=== PATIENT | male | born 1975 | race Caucasian/White ===

== ENCOUNTER 2016-04-16 11:44 | Emergency (ER) | payer SELFPAY ==
[~2016-04-16] VITALS: Ht 172.7 cm; Wt 64.0 kg
[2016-04-16 11:46] VITALS: BP 149/82; PULSE 92; RESP 24; TEMP 97.2; O2SAT 97
--- NOTE | 2016-04-16 12:00 | PD ---
HPI Chief Complaint: Back/ Neck Pain or Injury Time Seen by Provider: 12:00 Travel History International Travel<30 days: No Contact w/Intl Traveler<30days: No Traveled to known affect area: No History of Present Illness HPI 30-year-old male presents to the emergency Department with complaint of left lateral neck pain that radiates to his left upper shoulder that he woke up with this morning. He has been moving over the past few days and moving heavy furniture. Denies traumatic injury. He woke up this morning and was barely able to move his neck. Pain is aggravated with movement of the left arm and movement of the neck. He is able to minimally turn his neck to the left and right. Took Tylenol with no relief of symptoms. Denies IV drug use. Denies cancer. Denies headache, lightheadedness, dizziness. Denies paresthesias, loss of sensation, decreased strength to bilateral upper extremity is. Reports decreased range of motion to the left shoulder secondary to pain elicited in the neck. Is ambulatory. Denies fever, chills, nausea, vomiting. Denies significant past medical history. Allergies to codeine and Ultram. No other modifying factors or associated signs and symptoms. PFSH Past Medical History Medical History: Denies Significant Hx Social History Tobacco Use: Yes (03/20 PPD) Allergies-Medications (Allergen,Severity, Reaction): Coded Allergies: Ultram (Verified Allergy, Severe, Nausea/Vomiting, 04/16/16) Uncoded Allergies: CODEINE (Allergy, Severe, Itching, 04/16/16) Reported Meds & Prescriptions Reported Meds & Active Scripts Active Flexeril (Cyclobenzaprine HCl) 10 Mg Tab 10 Mg PO TID PRN Ibuprofen 800 Mg Tab 800 Mg PO Q6HR PRN Review of Systems Except as stated in HPI: all other systems reviewed are Neg Physical Exam Narrative GENERAL: Well-nourished, well-developed male patient, in no acute distress; afebrile, nontoxic-appearing SKIN: Warm and dry. HEAD: Atraumatic. Normocephalic. EYES: Pupils equal and round. No scleral icterus. No injection or drainage. ENT: Mucosa pink and moist. Airway patent. NECK: Trachea midline. No lymphadenopathy. Active rotation of the neck less than 45 left and right secondary to pain and deafness of the neck. No midline point tenderness on palpation of the cervical spine. Reproducible tenderness to the left lateral neck and down to the left upper trapezius muscle over the scapula. No obvious deformities. Ambulatory with normal gait. CARDIOVASCULAR: Regular rate and rhythm. No murmur appreciated. RESPIRATORY: No accessory muscle use. Clear to auscultation. Breath sounds equal bilaterally. GASTROINTESTINAL: Abdomen soft, non-tender, nondistended. Hepatic and splenic margins not palpable. Bowel sounds are active 4 quadrants. MUSCULOSKELETAL: Bilateral upper extremities are supple and non-tense with 2+ radial pulses and sensory intact with full range of motion and strength. The left shoulder is with full range of motion and greater than 45 abduction. Patient reports left lateral neck pain increases with abduction of left shoulder during physical exam. No obvious deformities. No clubbing. No cyanosis. No edema. Normal gait. BACK: No obvious deformities. NEUROLOGICAL: Awake and alert. Oriented 3. No obvious cranial nerve deficits. Motor grossly within normal limits. Normal speech. Moves all extremities. 5/5 strength to all extremities. Sensory intact. PSYCHIATRIC: Appropriate mood and affect; insight and judgment normal. Data Data Last Documented VS Vital Signs Date Time Temp Pulse Resp B/P Pulse Ox O2 Delivery O2 Flow Rate FiO2 04/16/16 11:46 97.2 92 24 149/82 97 Room Air Orders Ketorolac Inj (Toradol Inj) (04/16/16 12:15) Orphenadrine Inj (Norflex Inj) (04/16/16 12:15) MDM Medical Decision Making Medical Screen Exam Complete: Yes Emergency Medical Condition: Yes Medical Record Reviewed: Yes Differential Diagnosis Cervical strain, muscle spasm, trapezius muscle strain, neck stiffness Narrative Course 40-year-old male with stiff neck and reproducible tenderness to the left lateral neck and left upper trapezius muscle. He's been moving furniture for the past few days and denies somatic injury. Denies IV drug use. Denies cancer. Denies fever, chills, nausea, vomiting. Patient is afebrile and the ER. He is able to rotate his neck minimally to the right and left episode exam. There is no reproducible tenderness to midline cervical spine. Patient is ambulatory with normal gait. Without traumatic injury and other red flags, I feel that imaging at this time is not necessary and findings are consistent with stiff neck. Toradol and Norflex administered in the ER. 1235: On reexamination the patient reports improvement in symptoms. He is able to rotate his neck to the left and right a little bit more than previously ; just about to 45 to the left and right. Discussed reasons to return to the emergency department and patient verbalized understanding and agreement of treatment plan. Ibuprofen and Flexeril prescribed for home. Patient is medically cleared and stable for discharge. Discussed reasons to return to the emergency department. Instructed patient to follow up with primary care provider. Patient agrees with treatment plan. The patients vital signs are stable and the patient is stable for outpatient follow-up and treatment. Patient discharged home, stable and in no acute distress. Diagnosis Primary Impression: Stiffness of neck Additional Impression: Trapezius muscle spasm Referrals: Primary Care Physician Patient Instructions: General Instructions, Neck Exercises (GEN) Departure Forms: Tests/Procedures, Work Release Enter return to work date: Apr 19, 2016 Additional Instructions: Tylenol or ibuprofen as directed and as needed to reduce pain Flexeril as prescribed for muscle spasms Get adequate rest Ice and/or heating pad to affected area to reduce pain Avoid aggravating activity; increase activity as tolerated Follow-up with primary care provider Return to the emergency department immediately with worsening symptom Med/Other Pt SpecificInfo: Prescription(s) given Scripts Cyclobenzaprine (Flexeril)10 Mg Tab10 Mg PO TID PRN (MUSCLE SPASM) #30 TAB Ref 0 Prov:Belgica Gong 04/16/16 Ibuprofen 800 Mg [id number] Mg PO Q6HR PRN (PAIN) #30 TAB Ref 0 Prov:Belgica Gong 04/16/16 Disposition: 01 DISCHARGE HOME Condition: Stable Belgica Gong Apr 16, 2016 12:00
[2016-04-16] MEDS ORDERED: ORPHENADRINE INJ 60 MG/2 ML AMP IM ONE (12:15)
[2016-04-16] MEDS ORDERED: KETOROLAC TROMETHAMINE 60 MG/2 ML (IM) VIAL IM ONE (12:15)
[2016-04-16] MEDS ORDERED: IBUP800T23 PO (12:20)
[2016-04-16] MEDS ORDERED: CYCL1TAB29 PO (12:20)
== END 2016-04-16 13:00 | disposition home or self-care (01) ==
LOC: NEPB 11:44
DX: M43.6 Torticollis (principal); M62.838 Other muscle spasm; X50.0XXA Overexertion from strenuous movement or load, initial encounter
CPT/HCPCS: 96372; 99283; J1885; J2360

== ENCOUNTER 2016-09-05 18:46 | Emergency (ER) | payer SELFPAY ==
[~2016-09-05] VITALS: Ht 167.6 cm; Wt 61.6 kg
[~2016-09-05 18:46] MED LIST: CYCL1TAB29 PO; IBUP800T23 PO
[2016-09-05 18:48] VITALS: BP 167/75; PULSE 82; RESP 18; TEMP 98.3; O2SAT 99
--- NOTE | 2016-09-05 19:38 | PD ---
HPI Chief Complaint: Pain: Acute or Chronic Time Seen by Provider: 19:35 Travel History International Travel<30 days: No Contact w/Intl Traveler<30days: No Traveled to known affect area: No History of Present Illness HPI Patient is a 40-year-old male presenting to emergency department for evaluation of left knee pain. Patient states that he was dancing Sunday night and the floor was wet causing him to slip, twisted his left knee and landed on it. Denies any swelling or redness but states it's painful to walk. He localizes the pain to the medial aspect with radiation to the thigh. He denies any numbness, tingling, weakness. He took Tylenol at 2 PM with no relief of his symptoms. He reports his pain is a 6 out of 10, exacerbated with ambulation or activity. He denies any significant past medical history. [facility] Past Medical History Medical History: Denies Significant Hx Diminished Hearing: No Immunizations Current: Yes Tetanus Vaccination: < 5 Years Influenza Vaccination: Yes Social History Alcohol Use: No Tobacco Use: Yes (03/20 PPD) Substance Use: No Allergies-Medications (Allergen,Severity, Reaction): Coded Allergies: Tramadol (Verified Allergy, Severe, 09/05/16) itchiness, nausea Ultram (Verified Allergy, Severe, Nausea/Vomiting, 09/05/16) Uncoded Allergies: CODEINE (Allergy, Severe, Itching, 04/16/16) Reported Meds & Prescriptions Reported Meds & Active Scripts Active Review of Systems Except as stated in HPI: all other systems reviewed are Neg Musculoskeletal: Positive: Myalgias, Arthralgias, Limited ROM, Pain Physical Exam Narrative GENERAL: Well-nourished, well-developed patient. SKIN: Focused skin assessment warm/dry. HEAD: Normocephalic. EYES: No scleral icterus. No injection or drainage. NECK: Supple, trachea midline. No JVD or lymphadenopathy. CARDIOVASCULAR: Regular rate and rhythm without murmurs, gallops, or rubs. RESPIRATORY: Breath sounds equal bilaterally. No accessory muscle use. GASTROINTESTINAL: Abdomen soft, non-tender, nondistended. MUSCULOSKELETAL: No cyanosis, or edema. No obvious deformities noted. Patient is neurovascularly intact, tenderness to palpation on the medial aspect of the left knee, adjacent to patella. BACK: Nontender without obvious deformity. No CVA tenderness. Data Data Last Documented VS Vital Signs Date Time Temp Pulse Resp B/P Pulse Ox O2 Delivery O2 Flow Rate FiO2 09/05/16 18:48 98.3 82 18 167/75 99 Orders Knee, Complete (4vws) (09/05/16 ) Ketorolac Inj (Toradol Inj) (09/05/16 19:45) [facility] Medical Decision Making Medical Screen Exam Complete: Yes Emergency Medical Condition: Yes Interpretation(s) Vital Signs Date Time Temp Pulse Resp B/P Pulse Ox O2 Delivery O2 Flow Rate FiO2 09/05/16 18:48 98.3 82 18 167/75 99 Differential Diagnosis Fracture versus sprain versus strain versus other Narrative Course Patient is a 40-year-old male presenting with left knee pain after twisting and falling on it Sunday. No obvious deformities noted, patient is neurovascularly intact. Imaging ordered and pending, Toradol ordered for pain. Patient's vital signs are stable. Imaging of the left knee is negative for acute fracture. Patient will be given crutches, he is encouraged to rest, ice, elevate extremity, continue range of motion exercises and avoid exacerbating activities. He was advised to follow- up with his primary care provider for further evaluation and management should symptoms persist despite conservative therapy. Discussed with patient he may need an outpatient MRI if his symptoms do not improve. He was encouraged to return to emergency department for any new or worsening symptoms. Patient verbalized understanding of instructions. Patient is stable for discharge. Diagnosis Primary Impression: Knee sprain Qualified Code: S83.92XA - Sprain of left knee, unspecified ligament, initial encounter Referrals: Orthopaedic Surgeon Primary Care Physician Patient Instructions: General Instructions, Knee Exercises (GEN), Knee Sprain ( ED) Additional Instructions: Rest, ice, elevate extremity, continue range of motion exercises, avoid exacerbating activities Increase weightbearing as tolerated Take medications as directed Follow-up with your primary doctor or orthopedic surgeon for further evaluation management Return to emergency department for any new or worsening symptoms Med/Other Pt SpecificInfo: Prescription(s) given Scripts Cyclobenzaprine (Flexeril)10 Mg Tab10 Mg PO TID PRN (MUSCLE SPASM) 7 Days Ref 0 Prov:Quyen Ann 09/05/16 Ibuprofen 800 Mg [id number] Mg PO Q6HR PRN (PAIN) #40 TAB Ref 0 Prov:Quyen Ann 09/05/16 Disposition: 01 DISCHARGE HOME Condition: Stable Quyen Ann Sep 05, 2016 19:38
[2016-09-05] MEDS ORDERED: KETOROLAC TROMETHAMINE 60 MG/2 ML (IM) VIAL IM ONE (19:45)
--- NOTE | 2016-09-05 20:48 | RADRPT ---
EXAM DATE/TIME: 09/05/2016 20:05 [place] COMPARISON: No previous studies available for comparison. INDICATIONS : LEft knee pain after falling on Sunday. MEDICAL HISTORY : None. SURGICAL HISTORY : None. ENCOUNTER: Initial ACUITY: 3 days PAIN SCORE: 10/10 LOCATION: Left medial knee. FINDINGS: Four view examination of the left knee demonstrates no evidence of fracture or dislocation. Bony min eralization is normal. The articular surfaces are intact. The suprapatellar soft tissues have a nor mal configuration. CONCLUSION: Unremarkable examination of the left knee. Elliott Meadows MD on September 05, 2016 at 20:44 Board Certified Radiologist. This report was verified electronically.
[2016-09-05] MEDS ORDERED: CYCL1TAB29 PO (20:51)
[2016-09-05] MEDS ORDERED: IBUP800T23 PO (20:51)
== END 2016-09-05 21:09 | disposition home or self-care (01) ==
LOC: NEPK 18:46
DX: S83.92XA Sprain of unspecified site of left knee, initial encounter (principal); W01.0XXA Fall on same level from slipping, tripping and stumbling without subsequent striking against object, initial encounter; X50.1XXA Overexertion from prolonged static or awkward postures, initial encounter; Y93.41 Activity, dancing; F17.210 Nicotine dependence, cigarettes, uncomplicated
CPT/HCPCS: 73564; 96372; 99284; E0113; J1885